=== PATIENT | female | born 1950 | race Caucasian/White ===

== ENCOUNTER → 2023-01-17 | Emergency (ER) | payer MEDICARE ==
[~2023-01-17] VITALS: Ht 165.1 cm; Wt 83.9 kg
[~2023-01-17] MED LIST: IOHEXOL 300MG/ML 100 ML INFUS..BTL ONE; IV NORMAL SALINE 1000 ML BAG IV ONE; IV NORMAL SALINE 250 ML IV ONE; SWABABLE VALVE TRANSFER SET EA MC ONE
--- NOTE | 2023-01-17 09:19 | NUR ---
PT IS IN ROOM #1B. DR OWUSU EVALUATED THE PT.
[2023-01-17 10:37] LABS: HEMATOCRIT 38.6 % (31.2-41.9); MEAN CORPUSCULAR HEMOGLOBIN 28.6 uug (24.7-32.8); MEAN CORPUSCULAR VOLUME 86.2 fL (75.5-95.3); PLATELET COUNT (AUTO) 252 K/uL (179-408)
[2023-01-17 10:53] LABS: CARBON DIOXIDE 23 mmol/L (21-32); CHLORIDE 107 mmol/L (98-107); CREATININE 0.6 mg/dL (0.6-1.3); GLUCOSE 103 mg/dL (74-106); POTASSIUM 3.5 mmol/L (3.5-5.1); UREA NITROGEN, BLOOD 12 mg/dL (7-18)
[2023-01-17 10:55] LABS: *BILIRUBIN,URIN NEGATIVE (NEGATIVE); *BLOOD, URINE NEGATIVE (NEGATIVE); *CLARITY,URINE CLEAR (CLEAR); *COLOR,URINE YELLOW (YELLOW); *KETONES,URINE 1+ (NEGATIVE); *UROBILINOGEN,URINE 0.2 E.U./dl (NORMAL); LEUKOCYTE ESTERASE ,URINE NEGATIVE (NEGATIVE); NITRITE, URINE NEGATIVE (NEGATIVE); PH,URINE 5.5 (5.0-8.0); UGLUCOSE NEGATIVE (NEGATIVE)
[2023-01-17 11:02] LABS: ALANINE AMINOTRANSFERASE 29 U/L (14-59); ALKALINE PHOSPHATASE 58 U/L (50-136); ASPARTATE AMINOTRANSFERASE 12 U/L (15-37); BILIRUBIN,DIRECT 0.1 mg/dL (0.0-0.2); BILIRUBIN,TOTAL 0.5 mg/dL (0.2-1.0); TOTAL PROTEIN, SERUM 7.2 g/dL (6.4-8.2)
[2023-01-17 11:52] LABS: BACTERIA,URINE NONE SEEN /HPF (NONE SEEN); RBC,URINE NONE SEEN /HPF (0-3); SQUAMOUS EPITHELIAL CELL,UR FEW /HPF (NONE SEEN); WBC,URINE NONE SEEN /HPF (0-3)
== END | disposition home or self-care (01) ==
LOC: ER 08:57
DX: R13.10 Dysphagia, unspecified (principal); E04.1 Nontoxic single thyroid nodule; R07.89 Other chest pain; Z90.49 Acquired absence of other specified parts of digestive tract; Z88.7 Allergy status to serum and vaccine
CPT/HCPCS: 99285; 96360; 70491; 71045; 80076; 80048; 81001; 85025; 85730; 84484; 36415; 93005; Q9967; J7040 ×2; A4663

== ENCOUNTER 2023-01-22 07:50 | Emergency (ER) | payer MEDICARE ==
[~2023-01-22] VITALS: Ht 165.1 cm; Wt 80.7 kg
[2023-01-22] MEDS ORDERED: [UNRECOGNIZED DRUG - OTHER] (08:00)
[2023-01-22] MEDS ORDERED: XANAX (08:00)
--- NOTE | 2023-01-22 08:03 | NUR ---
[email or web address], medical screening exam in progress
[2023-01-22 08:27] LABS: HEMATOCRIT 39.2 % (31.2-41.9); MEAN CORPUSCULAR HEMOGLOBIN 28.7 uug (24.7-32.8); MEAN CORPUSCULAR VOLUME 85.8 fL (75.5-95.3); PLATELET COUNT (AUTO) 270 K/uL (179-408)
[2023-01-22 08:38] LABS: CREATININE 0.6 mg/dL (0.6-1.3); POTASSIUM 3.3 mmol/L (3.5-5.1)
--- NOTE | 2023-01-22 09:10 | NUR ---
Patient discharged to home by Dr Alvarez in stable condition with brisk steady gait. Written and verbal after care instructions given. Patient verbalized understanding and compliance of instructions. Stressed follow up with primary doctor and ENT or return to ER for worsening s/s.
--- NOTE | 2023-01-22 09:11 | NUR ---
All lab tests and previous radiology imaging tests' results were also given to patient.
[2023-01-22 09:16] VITALS: BP 120/88
== END 2023-01-22 09:16 | disposition home or self-care (01) ==
LOC: ER 07:52
DX: F41.9 Anxiety disorder, unspecified (principal); Z90.49 Acquired absence of other specified parts of digestive tract; Z88.7 Allergy status to serum and vaccine; Z79.899 Other long term (current) drug therapy
CPT/HCPCS: 36415; 84484; 85025; 93005; A4663

== ENCOUNTER 2023-03-31 17:29 | Emergency (ER) | payer MEDICARE ==
[~2023-03-31] VITALS: Ht 165.1 cm; Wt 80.7 kg
[~2023-03-31 17:29] MED LIST changes: -IOHEXOL 300MG/ML 100 ML INFUS..BTL ONE; -IV NORMAL SALINE 1000 ML BAG IV ONE; -IV NORMAL SALINE 250 ML IV ONE; -SWABABLE VALVE TRANSFER SET EA MC ONE; +XANAX; +[UNRECOGNIZED DRUG - OTHER]
[2023-03-31 18:09] LABS: BASOPHILS % (AUTO) 0.3 % (0.0-2.0); EOSINOPHILS # (AUTO) 0.2 K/uL (0.0-0.7); HEMATOCRIT 40.1 % (31.2-41.9); HEMOGLOBIN 13.3 g/dL (10.9-14.3); LYMPHOCYTES # (AUTO) 2.5 K/uL (0.8-4.8); LYMPHOCYTES % (AUTO) 34.6 % (20.5-51.5); MEAN CORPUSCULAR HEMOGLOBIN 28.4 uug (24.7-32.8); MEAN CORPUSCULAR HGB CONC 33 g/dL (32.3-35.6); MEAN CORPUSCULAR VOLUME 85.7 fL (75.5-95.3); MONOCYTES # (AUTO) 0.7 K/uL (0.1-1.30); MONOCYTES % (AUTO) 9.3 % (0.0-11.0); NEUTROPHILS # (AUTO) 3.7 K/uL (1.8-8.9); NEUTROPHILS % (AUTO) 52.8 % (38.5-71.5); PLATELET COUNT (AUTO) 254 K/uL (179-408); RED BLOOD CELL COUNT(AUTO) 4.68 MIL/uL (3.63-4.92); RED CELL DISTRIBUTION WIDTH 14.3 % (12.3-17.7); WHITE BLOOD COUNT (AUTO) 7.1 K/uL (3.8-11.8)
[2023-03-31 18:14] LABS: DIFFERENTIAL COMMENT 1
[2023-03-31 18:17] LABS: CARBON DIOXIDE 23 mmol/L (21-32); CHLORIDE 105 mmol/L (98-107); CREATININE 0.7 mg/dL (0.6-1.3); GLUCOSE 102 mg/dL (74-106); POTASSIUM 3.9 mmol/L (3.5-5.1); SODIUM SERUM 141 mmol/L (136-145); UREA NITROGEN, BLOOD 12 mg/dL (7-18)
[2023-03-31 18:22] LABS: ALANINE AMINOTRANSFERASE 26 U/L (14-59); ALBUMIN 3.9 g/dL (3.4-5.0); ALKALINE PHOSPHATASE 55 U/L (50-136); ASPARTATE AMINOTRANSFERASE 9 U/L (15-37); BILIRUBIN,DIRECT 0.1 mg/dL (0.0-0.2); BILIRUBIN,TOTAL 0.5 mg/dL (0.2-1.0)
[2023-03-31 18:33] LABS: ETHANOL < 3 MG/DL (0-10)
[2023-03-31 18:39] LABS: *BILIRUBIN,URIN NEGATIVE (NEGATIVE); *BLOOD, URINE NEGATIVE (NEGATIVE); *CLARITY,URINE CLEAR (CLEAR); *COLOR,URINE YELLOW (YELLOW); *KETONES,URINE NEGATIVE (NEGATIVE); *PROTEIN,URINE NEGATIVE (NEGATIVE); *UROBILINOGEN,URINE 0.2 E.U./dl (NORMAL); LEUKOCYTE ESTERASE ,URINE NEGATIVE (NEGATIVE); NITRITE, URINE NEGATIVE (NEGATIVE); UGLUCOSE NEGATIVE (NEGATIVE)
[2023-03-31 18:50] LABS: *AMPHETAMINE, URINE NEGATIVE (NEGATIVE); *BARBITURATE, URINE NEGATIVE (NEGATIVE); *BENZODIAZEPINE, URINE POSITIVE (NEGATIVE); *CANNABINOID, URINE NEGATIVE (NEGATIVE); *COCCAINE, URINE NEGATIVE (NEGATIVE); *OPIATE, URINE NEGATIVE (NEGATIVE); *PHENCYCLIDINE SCREEN,URINE NEGATIVE (NEGATIVE); FENTANYL, URINE NEGATIVE (NEGATIVE)
[2023-03-31 20:04] VITALS: BP 146/89; O2SAT 96
== END 2023-03-31 20:04 | disposition home or self-care (01) ==
LOC: ER 17:30
DX: F41.9 Anxiety disorder, unspecified (principal); R13.10 Dysphagia, unspecified; R07.89 Other chest pain; Z90.49 Acquired absence of other specified parts of digestive tract; Z79.899 Other long term (current) drug therapy
CPT/HCPCS: 36415; 71045; 85025; 93005; A4663; G0480